=== PATIENT | male | born 1955 | race Caucasian/White ===

== ENCOUNTER → 2022-03-01 | Outpatient (CLI) | payer MEDICARE | LOC: COL.RAD 08:55 | DX: M75.112 Incomplete rotator cuff tear or rupture of left shoulder, not specified as traumatic (principal); M75.111 Incomplete rotator cuff tear or rupture of right shoulder, not specified as traumatic; S43.431A Superior glenoid labrum lesion of right shoulder, initial encounter; M19.011 Primary osteoarthritis, right shoulder; M19.012 Primary osteoarthritis, left shoulder; X58.XXXA Exposure to other specified factors, initial encounter ==